=== PATIENT | female | born 1980 ===

== ENCOUNTER 2020-07-30 11:00 | Inpatient (IN) | payer OTHER ==
[~2020-07-30] VITALS: Ht 172.7 cm; Wt 74.8 kg
[2020-07-30] MEDS ORDERED: KETO10TA2 PO (16:34)
[2020-07-30] MEDS ORDERED: GABAPENTIN600 MG PO (16:35)
[2020-08-10] MEDS ORDERED: LEVOFLOXAC500 MG/100 PO (13:08)
[2020-08-10] MEDS ORDERED: OXYC1TAB9 PO (13:10)
[2020-08-11] MEDS ORDERED: PERCOCET 5-3251 EACH PO (08:26)
[2020-08-11] MEDS ORDERED: GABAPENTIN300 MG PO (08:26)
== END 2020-08-11 14:33 | disposition home or self-care (01) | DRG 460 ==
LOC: SURH 08-06 06:00 → O/R 08-06 06:00 → SURH 08-06 07:00
PROVIDERS: ADMIT Neurological Surgery; ATTEND Neurological Surgery
PROC: 0SB20ZZ Excision of Lumbar Vertebral Disc, Open Approach (ICD-10-PCS; 2020-08-06)
PROC: 01NB0ZZ Release Lumbar Nerve, Open Approach (ICD-10-PCS; 2020-08-06)
PROC: 4A1004G Monitoring of Central Nervous Electrical Activity, Intraoperative, Open Approach (ICD-10-PCS; 2020-08-06)
PROC: 0SG00A0 Fusion of Lumbar Vertebral Joint with Interbody Fusion Device, Anterior Approach, Anterior Column, Open Approach (ICD-10-PCS; principal; 2020-08-06 07:00)
DX: M48.062 Spinal stenosis, lumbar region with neurogenic claudication (principal); M51.06 Intervertebral disc disorders with myelopathy, lumbar region; G83.4 Cauda equina syndrome